=== PATIENT | female | born 1960 | race Caucasian/White ===

== ENCOUNTER 2018-08-29 01:09 | Emergency (ER) | payer BC ==
[~2018-08-29] VITALS: Ht 157.5 cm; Wt 97.5 kg
--- OUTSIDE RECORDS SUMMARY | 2018-08-29 01:10 | XMS REPORT ---
Author Author [facility] Address Unknown Phone Unavailable Care Team Providers Care Benefits Director Name Role Phone Unavailable Unavailable Problems This patient has no known problems. Allergies, Adverse Reactions, Alerts This patient has no known allergies or adverse reactions. Medications This patient has no known medications. Results Test Description Test Time Test Comments Text Results Atomic Results Result Comments SCR MAMM BILATERAL BTEI CAD DIGITAL 2018-04-14 08:43:58 - SCR MAMM BILATERAL BETI CAD DIGITALBILATERAL DIGITAL SCREENING MAMMOGRAM 3D/2D WITH CAD: 04/14/2018CLINICAL: Asymptomatic. Digital breast tomosynthesis was performed in addition to routine CC and MLO views. Current mammographic images were evaluated by either a GiftRocket M-Vu or a Recovr ImageChecker CAD (computer aided detection system). Comparison is made to exams dated 01/15/2017 mammogram, 10/31 mammogram, and 04/04/2014 mammogram - [facility]. There are scattered fibroglandular tissues in both breasts. There are benign calcifications in both breasts. There also are stable benign appearing masses in both breasts. Additionally, there is a biopsy clip in the right breast. No suspicious mass, architectural distortion, malignant type calcification, or lymph node abnormality detected. Breast architecture is stable compared to prior exams.IMPRESSION: BENIGNThere is no mammographic evidence of malignancy. Resume annual screening mammography in one year. Desirae Soto MD hs/:04/14/2018 08:43:58 Oracle Technical Developer: Mimi CHRISTIE, [facility] sent: BIRADS 1-2 Normal Mammogram BI-RADS: 2 Benign
--- OUTSIDE RECORDS SUMMARY | 2018-08-29 01:10 | XMS REPORT | Clinical Summary ---
Author Author [facility] Address Unknown Phone Unavailable Care Team Providers Care Air Quality Instrument Specialist Name Role Phone Asked, No Pcp PCP Unavailable Allergies Not on File Medications Not on file Active Problems Not on file Encounters Care Team Description Date Type Specialty 12/22/2017 Clinical Corporate Wellness Support after 08/28/2017 Immunizations Name Dates Previously Given Next Due FLUCELVAX QUAD PF (0.5mL 12/22/2017 syringe) Social History Date Tobacco Use Types Packs/Day Years Used Never Assessed Sex Assigned at Date Recorded Not on file Industry Job Start Date Occupation Not on file Not on file Not on file Travel End Travel History Travel Start No recent travel history available. Last Filed Vital Signs Not on file Plan of Treatment Health Maintenance Due Date Last Done Comments BREAST CANCER SCREENING 2010 COLONOSCOPY SCREENING 2010 SHINGLES VACCINES (#1) 2010 INFLUENZA VACCINE 10/14/2018 12/22/2017 Results Not on fileafter 08/28/2017 Insurance Type Payer Benefit Subscriber ID Effective Phone Address Plan / Dates Group PPO BCBS BCBS xxxxxxxxxxxx 2017-P CHOICE resent PPO/F[employer] L EMPL PPO Advance Directives Patient has advance care planning documents on file. For more information, yadiel rojas contact: Albino Moncada [address] [place] [address]
--- OUTSIDE RECORDS SUMMARY | 2018-08-29 01:11 | XMS REPORT | Summary of Care ---
Author Author Andrea Brito, Sharon Benz Unknown Address Unknown Phone Unavailable Care Team Providers Care Bird Cage Assembler Name Role Phone ERNIE Cintron, RUFINO Unavailable Unavailable VANIA Cintron, MARY Unavailable Unavailable ERNIE LOCKHART GA, RUFINO COLLIER Unavailable Unavailable Patricia Brito, Marjorie Unavailable Unavailable VANIA LOCKHART, MARY Unavailable Unavailable Unavailable Unavailable Functional Status Name Dates Details Functional status health issues are not documented Status: Name Dates Details Cognitive status health issues are not documented Status: Problems Name Dates Details Hearing loss (389.9, H91.90) Status: Active Constipation, chronic (564.00, K59.09) Status: Active Pes planus (734, M21.40) Status: Active Right ankle pain (719.47, M25.571) Status: Active Tendinitis of right ankle (727.06, M77.9) Status: Active Urgency of urination (788.63, R39.15) Status: Active Abdominal pain, RLQ (right lower quadrant) (789.03, R10.31) Status: Active Right flank pain (789.09, R10.9) Status: Active Exposure to blood or body fluid (V15.85, Z77.21) Status: Active Head injury (959.01, S09.90XA) Status: Active Vertigo (780.4, R42) Status: Active Paronychia, acute (681.9) Status: Active Postcholecystectomy diarrhea (564.4, 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.7) Status: Active Diarrhea due to drug (787.91, K52.1) Status: Active 23-polyvalent pneumococcal polysaccharide vaccine indication of diabetes in patient 6 to 64 years of age (250.00, E11.9) Status: Active Need for hepatitis B vaccination (V05.3, Z23) Status: Active Acute sinusitis (461.9, J01.90) Status: Active Acute urinary tract infection (599.0, N39.0) Status: Active Sensorineural hearing loss (389.10, H90.5) Status: Active Foul smelling urine (791.9, R82.90) Status: Active Mood disorder (296.90, F39) Status: Active 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, 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 Influenza vaccine needed (V04.81, Z23) Status: Active BMI 40.0-44.9, adult (V85.41, Z68.41) Status: Active History of motion sickness (V13.89, Z87.898) Status: Active Situational anxiety (300.09, F41.8) Status: Active Carpal tunnel syndrome, bilateral upper limbs (354.0, G56.03) Status: Active Contusion of unspecified part of head, initial encounter (920, S00.93XA) Status: Active Acute UTI (599.0, N39.0) Status: Active Headache (784.0, R51) Status: Active Infected nail bed of toe (681.11, L03.039) Status: Active Controlled diabetes mellitus type II without complication (250.00, E11.9) Status: Active Dyslipidemia (272.4, E78.5) Status: Active Encounter for routine adult physical exam with abnormal findings (V70.0, Z00.01) Status: Active At risk for coronary artery disease (V49.89, Z91.89) Status: Active Type 2 diabetes mellitus without complication, without long-term current use of insulin (250.00, E11.9) Status: Active Smoking history (V15.82, Z87.891) Status: Active Encounter for well adult exam with abnormal findings (V70.0, Z00.01) Status: Active Encounter for gynecological examination with Papanicolaou smear of cervix (V72.31, Z01.419) Status: Active Pap smear for cervical cancer screening (V76.2, Z12.4) Status: Active Breast cancer screening (V76.10, Z12.31) Status: Active Acute pharyngitis due to other specified organisms (462, J02.8) Status: Active Otalgia, right ear (388.70, H92.01) Status: Active Depression screening negative (V79.0, Z13.31) Status: Active Patient had no falls in past year (V49.89, Z78.9) Status: Active Diabetes mellitus (250.00, E11.9) Status: Active Essential (primary) hypertension (401.9, I10) Status: Active Mixed hyperlipidemia (272.2, E78.2) Status: Active Vitamin D insufficiency (268.9, E55.9) Status: Active Medications Name Dates Details Venlafaxine HCl ER 75 MG Oral Capsule Extended Release 24 Hour TAKE 1 CAPSULE BY MOUTH EVERY DAY Quantity: 90 RUFINO KLEIN M.D. * Start : 27-Jun-2013 Active Excedrin Migraine TABS PRN * Refills: 0 Active BD Pen Needle Marine U/F 32G X 4 MM 1 a day * Quantity: 100 Refills: 2 MARY CARO M.D. * Start : 07-Dec-2014 Active Accu-Chek Guide In Vitro Strip Check BG 2x a day * Quantity: 2 Refills: 3 MARY CARO M.D. * Start : 05-Feb-2015 Active 100 Strip Box Accu-Chek FastClix Lancets CHECK BLOOD GLUCOSE TWICE DAILY * Quantity: 2 Refills: 0 MARY CARO M.D. * Start : 17-May-2018 Active Each Colestipol HCl - 1 GM Oral Tablet TAKE 1 TABLET BY MOUTH EVERY MORNING * Quantity: 30 Refills: 1 RUFINO KLEIN M.D. * Start : 15-Jun-2018 Active metFORMIN HCl ER 500 MG Oral Tablet Extended Release 24 Hour Take 3 tablets a day * Quantity: 270 Refills: 1 MARY CARO M.D. * Start : 10-Jan-2016 Active Trulicity 1.5 MG/0.5ML Subcutaneous Solution Pen-injector INJECT CONTENTS OF ONE PEN WEEKLY * Quantity: 1 Refills: 3 MARY CARO M.D. * Start : 04-Mar-2016 Active 4 x 0.5 ML Pen Vitamin D3 1000 UNIT Oral Capsule 1 a day; Restart 07-29-17 * Quantity: 100 Refills: 4 MARY CARO M.D. * Start : 04-Mar-2016 Active Pravastatin Sodium 20 MG Oral Tablet 1 tab at night * Quantity: 90 Refills: 1 MARY CARO M.D. * Start : 15-Aug-2016 Active Vitamin B-12 500 MCG Oral Tablet TAKE 1 TABLET DAILY. Start 07-29-17 * Refills: 0 MARY CARO M.D. * Start : 29-Jul-2017 Active Losartan Potassium 25 MG Oral Tablet TAKE 1 TABLET DAILY. * Quantity: 90 Refills: 2 VANIA Cintron, MARY * Start : 25-Mar-2018 Active Allergies and Adverse Reactions Name Dates Details Codeine Derivatives (Allergy) Status: Active Past Medical History Name Dates Details Influenza vaccine needed (V04.81, Z23) Status: Active History of Depressive disorder (311, F32.9) Status: Resolved History of essential hypertension (V12.59, Z86.79) Status: Resolved History of Fatty liver (571.8, K76.0) Status: Resolved History of obesity (V12.29, Z86.39) Status: Resolved History of renal calculi (V13.01, Z87.442) Status: Resolved History of Vitamin D insufficiency (268.9, E55.9) Status: Resolved Procedures Procedure Dates Details History of Cholecystectomy Completed History of Section Completed Immunization Name Dates Details Influenza on: 11-Dec-2009 Hepatitis A on: 14-Jan-2010 Hepatitis A on: 20-Aug-2010 Fluzone INJ Lot #: [id number] on: 04-Mar-2013 Influenza Lot #: [id number] on: 04-Dec-2015 Pneumococcal polysaccharide vaccine, 23 valent Lot #: [id number] on: 31-Jan-2016 Hepatitis B Lot #: [id number] on: 31-Jan-2016 Hepatitis B Lot #: [id number] on: 12-Mar-2016 Hepatitis B, adult Lot #: [id number] on: 06-Aug-2016 Fluzone Quadrivalent 0.5 ML Intramuscular Suspension Lot #: [id number] on: 24-Mar-2017 Fluzone Quadrivalent 0.5 ML Intramuscular Suspension on: 14-Dec-2017 Family History Name Dates Details Family history of Breast Cancer (V16.3) Comments: Family History Status: Active Family history of Hypertension (V17.49) Comments: Family History Status: Active Family history of Hyperlipidemia Comments: Family History Status: Active Name Dates Details Family history of Diabetes Mellitus (V18.0) Status: Active Name Dates Details Family history of Lung Cancer (V16.1) Status: Active Social History Name Dates Details - Status: Name Dates Details Former smoker Vital Signs Date Test Result Details No Known Vitals to report Results Date Description Value Details [id number] Negative Retinal Eye Exam (Diabetic) Negative Diabetic Eye Screening 03Jun2018 Plan of Care Name Dates Details Planned Observations Planned Goals not documented Planned Encounters Appointment; MARY CARO M.D. On: 22-Oct-2018 16:15 Appointment; RUFINO KLEIN M.D. On: 02-Dec-2018 15:15 Interventions Provided Medication Changes* Venlafaxine HCl ER 75 MG Oral Capsule Extended Release 24 Hour - Renew Instructions Name Dates Details Instructions not documented Encounters Appointment; MARY CARO M.D. Encounter Diagnosis: Problem not documented On: 03-Dec-2016 16:15 Appointment; RUFINO KLEIN M.D. Encounter Diagnosis: Problem not documented On: 24-Mar-2017 14:45 Appointment; MARY CARO M.D. Encounter Diagnosis: Problem not documented On: 13-Apr-2017 16:15 Appointment; REY CRANE M.D. Encounter Diagnosis: Problem not documented On: 21-Apr-2017 9:00 Appointment; DANIEL SALDANA M.D. Encounter Diagnosis: Problem not documented On: 04-May-2017 15:00 Appointment; REY CRANE M.D. Encounter Diagnosis: Problem not documented On: 13-May-2017 15:30 Appointment; MARY CARO M.D. Encounter Diagnosis: Problem not documented On: 24-Jul-2017 9:30 Appointment; REY CRANE M.D. Encounter Diagnosis: Problem not documented On: 12-Aug-2017 14:30 Appointment; SANTOS VO M.D. Encounter Diagnosis: Problem not documented On: 18-Aug-2017 14:30 Appointment; SANTOS VO M.D. Encounter Diagnosis: Problem not documented On: 02-Dec-2017 15:15 Appointment; MARY CARO M.D. Encounter Diagnosis: Problem not documented On: 14-Jan-2018 13:00 Appointment; MARY CARO M.D. Encounter Diagnosis: Problem not documented On: 22-Mar-2018 12:00 Appointment; RUFINO KLEIN M.D. Encounter Diagnosis: Problem not documented On: 25-Mar-2018 14:45 Appointment; RUFINO KLEIN M.D. Encounter Diagnosis: Problem not documented On: 25-Mar-2018 14:45 Appointment; RUFINO KLEIN M.D. Encounter Diagnosis: Problem not documented On: 11-May-2018 15:15 Appointment; MARY CARO M.D. Encounter Diagnosis: Problem not documented On: 21-Jul-2018 16:15
[2018-08-29] MEDS ORDERED: TRAMADOL HCL 50 MG TAB PO ONE (01:30)
--- NOTE | 2018-08-29 02:01 | Diagnostic Imaging Report ---
CT BRAIN WO HISTORY: Trauma COMPARISON: None. TECHNIQUE: Noncontrast axial scans were obtained from skull base to the vertex. Coronal and sagittal reconstructions obtained from the axial data. One or more of the following dose reduction techniques were used: Automated exposure control, adjustment of the mA and/or kV according to patient size, and/or utilization of iterative reconstruction technique. DISCUSSION: Scalp/Skull: Unremarkable. Brain sulci: Appropriate for patient's age. Ventricles: Normal in size and configuration. No hydrocephalus. Extra-axial spaces: No masses or fluid collections. Parenchyma: Minimal carotid siphon calcifications. No mass, hemorrhage, or large vascular territory acute infarct. Dural sinuses: No abnormal densities. Sellar/Suprasellar region: Intact. Skull base: Intact. Incidental findings: None. IMPRESSION: No acute intracranial abnormalities. Signed by: Dr. Matthew Haque M.D. on 08/29/2018 1:57 AM
--- NOTE | 2018-08-29 02:35 | NUR ---
KNEE IMMOBILIZER APPLIED, INST ON USE. VERBALIZED UNDERSTANDING.
--- NOTE | 2018-08-29 02:42 | Diagnostic Imaging Report ---
KNEE LEFT THREE VIEWS - 3 views HISTORY: Pain. Fall. Hurt knee. COMPARISON: None available. FINDINGS: Bones: No acute displaced fracture. Osseous alignment is within normal limits. Joints: Mild degenerative changes of the knee. Soft tissues: Marked soft tissue swelling, particularly medially. Small suprapatellar joint effusion. Patellar enthesopathy. IMPRESSION: Marked soft tissue swelling without acute osseous abnormality. Signed by: Dr. Taya Woods M.D. on 08/29/2018 2:39 AM
== END 2018-08-29 03:00 | disposition home or self-care (01) ==
LOC: ER 01:09
DX: S00.83XA Contusion of other part of head, initial encounter (principal); S80.01XA Contusion of right knee, initial encounter; W01.0XXA Fall on same level from slipping, tripping and stumbling without subsequent striking against object, initial encounter; Y93.01 Activity, walking, marching and hiking; E11.9 Type 2 diabetes mellitus without complications; Z90.49 Acquired absence of other specified parts of digestive tract; Z82.49 Family history of ischemic heart disease and other diseases of the circulatory system; Z83.3 Family history of diabetes mellitus; Z88.5 Allergy status to narcotic agent
CPT/HCPCS: 70450; 99283